=== PATIENT | male | born 1975 | race Asian ===

== ENCOUNTER 2020-03-15 08:42 | Emergency (ER) | payer BC ==
[~2020-03-15] VITALS: Ht 180.3 cm; Wt 108.9 kg
[2020-03-15 08:49] VITALS: Ht 180.3 cm; Wt 108.9 kg
[2020-03-15 10:18] LABS: BASOPHIL % 0.3 % (0.2-1.5); PLATELET COUNT 243 x10^3mcL (152-348); RED CELL DISTRIBUTION WIDTH 13.8 % (12.1-16.2)
[2020-03-15 10:30] LABS: microscopic required? NO
[2020-03-15 10:52] LABS: UA SPECIFIC GRAVITY <=1.005 (1.005-1.035); urine erythrocyte NEGATIVE (NEGATIVE)
[2020-03-15 13:59] LABS: CALCIUM 8.9 mg/dL (8.5-10.1); CARBON DIOXIDE 26.8 mmol/L (21-32); CHLORIDE SERUM 104 mmol/L (98-107); CREATININE SERUM 0.9 mg/dL (0.7-1.3); GFR1 > 60 mL/min; GLUCOSE SERUM 107 mg/dL (74-106); POTASSIUM SERUM 3.8 mmol/L (3.5-5.1); SODIUM SERUM 139 mmol/L (136-145)
[2020-03-15 14:05] LABS: ALBUMIN 4.1 g/dL (3.4-5.0); ALKALINE PHOSPHATASE 75 U/L (46-116); ALT/SGPT 90 U/L (16-63); AST/SGOT 40 U/L (15-37); BILIRUBIN TOTAL 0.7 mg/dL (0.20-1.00); TOTAL PROTEIN, SERUM 7.6 g/dL (6.4-8.2)
[2020-03-15 15:36] VITALS: BP 135/82
== END 2020-03-15 15:36 | disposition left against medical advice (07) ==
LOC: ED 08:42
PROVIDERS: Emergency Medicine
DX: G45.8 Other transient cerebral ischemic attacks and related syndromes (principal); R74.01 Elevation of levels of liver transaminase levels; I10 Essential (primary) hypertension; E66.9 Obesity, unspecified
CPT/HCPCS: Q9967